=== PATIENT | female | born 1970 | race Caucasian/White ===

== ENCOUNTER 2019-12-28 06:34 | Emergency (ER) | payer OTHER ==
--- NOTE | 2019-12-28 06:59 | ED ---
Respiratory - HPI Summary HPI Summary: Pt. is a 49 y.o female who presents to the ER for dry cough, sinus pressure/pain , h/a, subjective fevers x 1 week. Pt. notes diarrhea x 1 day. Pt. states family had similar symptoms 2 weeks ago. Pt. also notes she has been feeling short of breath and feeling her chest is tight. Denies past medical hx. Occasional smoker. 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 Denies recent travel. Pt. notes facial swelling around her nose and sinuses. Sxs are mild in severity. No current modifying factors. - History of Current Complaint Chief Complaint: EDShortnessOfBreath Stated Complaint: COVID-19 TEST PER PT Time Seen by Provider: 12/28/19 06:39 Hx Obtained From: Patient Pain Intensity: 0 - Allergy/Home Medications Allergies/Adverse Reactions: Allergies Allergy/AdvReac Type Severity Reaction Status Date / Time No Known Allergies Allergy Verified 12/28/19 06:44 Home Medications: Home Medications Albuterol HFA INHALER* [Ventolin HFA Inhaler*] 2 puff INH Q6H PRN #1 mdi [Rx] Amoxicillin/Clavulanate TAB* [Augmentin TAB 875*] 875 mg PO BID #20 tab [Rx] PMH/Surg Hx/FS Hx/Imm Hx Previously Healthy: Yes Infectious Disease History: No Infectious Disease History: Denies: Traveled Outside the [place] in Last 30 Days - Family History Known Family History: Positive: Non-Contributory - Social History Occupation: Employed Full-time Lives: With Family Alcohol Use: Weekly Substance Use Type: Reports: None Smoking Status (MU): Current Some Day Smoker Review of Systems Positive: Fever, Chills Positive: Nasal Discharge, Other - sinus congestion/pain/swelling. Cardiovascular: Negative Positive: Shortness Of Breath, Cough Positive: Diarrhea. Negative: Abdominal Pain, Vomiting Musculoskeletal: Negative Skin: Negative Positive: Headache All Other Systems Reviewed And Are Negative: Yes Physical Exam Triage Information Reviewed: Yes Vital Signs On Initial Exam: Initial Vitals Temp Pulse Resp BP Pulse Ox 98.3 F 81 16 153/100 96 12/28/19 06:42 12/28/19 06:42 12/28/19 06:42 12/28/19 06:42 12/28/19 06:42 Vital Signs Reviewed: Yes Appearance: Positive: Well-Appearing - Pt. sitting up in bed in NAD. Talkative. Skin: Positive: Warm, Dry Head/Face: Positive: Normal Head/Face Inspection Eyes: Positive: Normal, EOMI, KALI, Conjunctiva Clear ENT: Positive: TMs normal, Other - Mild edema along bridge of nose. No erythema. Significant pain to maxillary sinuses. Neck: Positive: Supple, Nontender, No Lymphadenopathy. Negative: Nuchal Rigidity Respiratory/Lung Sounds: Positive: Other - Mild deminished breath sounds in bases.. Negative: Rales, Rhonchi, Stridor, Wheezes, Unable to speak in full sentences Cardiovascular: Positive: Normal, RRR Musculoskeletal: Positive: Normal, Strength/ROM Intact Neurological: Positive: Normal, CN Intact II-III Psychiatric: Positive: Affect/Mood Appropriate Procedures - Sedation Patient Received Moderate/Deep Sedation with Procedure: No Diagnostics - Vital Signs Vital Signs Temp Pulse Resp BP Pulse Ox 12/28/19 06:42 98.3 F 81 16 153/100 96 - Laboratory Lab Statement: Any lab studies that have been ordered have been reviewed, and results considered in the medical decision making process. Disposition - Course Course Of Treatment: Pt. with cough, SOB, sinus congestion x 1 week. Given sxs will test for COVID19. PPE applied. Suspect likely sinusitis given exam and hx. Pt. also notes feeling tightness in her lungs, mild diminshed breath sounds at bases, will tx with ventolin and agumentin for sinusitis. Discussed quarentine and instuctions given. HD will f.u. Pt. will return to er if sxs change or worsen. - Differential Dx - Cardiopulmonary Differential Diagnoses - Cardiopulmonary: Bronchitis, Influenza, Sinusitis - Diagnoses Provider Diagnoses: Bronchospasm, Sinusitis Discharge ED - Sign-Out/Discharge Documenting (check all that apply): Patient Departure - Discharge Plan Condition: Good Disposition: HOME Prescriptions: Albuterol HFA INHALER* [Ventolin HFA Inhaler*] 2 puff INH Q6H PRN #1 mdi PRN Reason: Shortness Of Breath Amoxicillin/Clavulanate TAB* [Augmentin TAB 875*] 875 mg PO BID #20 tab Patient Education Materials: Sinusitis (ED), Bronchospasm (ED) Forms: COVID-19 Tested & Isolation Referrals: [facility] [Outside] [facility] [facility]FERRAL [Outside] Additional Instructions: Follow up with the [facility] The health department will follow up with your COVID test results Review and follow isolation handout and quarantine yourself for 14 days Tylenol for discomfort as directed Increase fluids and rest Return to ER if symptoms change or worsen - Billing Disposition and Condition Condition: GOOD Disposition: Home - Attestation Statements Provider Attestation: I was available for consultation for this patient. I did not evaluate the patient or participate in any medical decision making or disposition decisions unless I am specifically named in the chart as having consulted on the patient. If I have consulted on the patient, please see my own ED note on the patient encounter. Neha Miguel MD
[2019-12-28 07:35] VITALS: BP 127/91
== END 2019-12-28 07:33 | disposition home or self-care (01) ==
LOC: ED 06:34
DX: J98.01 Acute bronchospasm (principal); J32.9 Chronic sinusitis, unspecified; R50.9 Fever, unspecified; R05 Cough; R06.02 Shortness of breath; Z20.828 Contact with and (suspected) exposure to other viral communicable diseases; Z79.899 Other long term (current) drug therapy; Z72.0 Tobacco use; R19.7 Diarrhea, unspecified
CPT/HCPCS: 87635; 99283